=== PATIENT | female | born 1990 | race Two or more races ===

== ENCOUNTER 2018-01-05 16:17 | Observation (INO) | payer MEDICAID ==
[2018-01-05] MEDS ORDERED: CLINDAMYCIN 600MG/50ML PREMIX 600 MG/50 ML BAG IVPB ONE (16:27)
--- NOTE | 2018-01-05 16:27 | Emergency Department Record ---
History of Present Illness - General Chief complaint: Abscess Stated complaint: SORE ON FACE Time Seen by Provider: 01/05/18 16:23 Source: Patient Mode of Arrival: Ambulatory Limitations: No limitations - History of Present Illness Initial comments: 27 yo female presents with a left sided facial infection that started on Thursday near her upper left lip. The area of swelling and redness has increased since that time. She has had MRSA in the past. She is a diabetic. She states her sugars typically are not well controlled. Prior abscesses have occurred in the axilla and legs. She had an abscess drained last fall on the right leg. No nausea or vomiting. No diarrhea. She did have some drainage from the area above the upper lip over the weekend that has stopped. No other active lesions. MD complaint: Abscess/boil -: Days(s) (4) Hx Tetanus Toxoid Vaccination: No Location: Face Severity: Moderate Consistency: Constant Improves with: None Worsens with: None Context: Other (Hx of MRSA skin infections) Associated symptoms: Denies other symptoms Treatments Prior to Arrival: None - Related Data Allergies Allergy/AdvReac Type Severity Reaction Status Date / Time No Known Drug Allergies Allergy Verified 01/05/18 16:25 Review of Systems Constitutional: Denies: Chills, Fever, Malaise, Weakness Eyes: Denies: Eye discharge, Eye pain, Photophobia, Vision change ENT: Denies: Congestion, Throat pain Respiratory: Denies: Cough Cardiovascular: Denies: Chest pain, Syncope Endocrine: Denies: Fatigue Gastrointestinal: Denies: Abdominal pain, Diarrhea, Nausea, Vomiting Genitourinary: Denies: Dysuria, Urgency Musculoskeletal: Denies: Arthralgia, Back pain, Myalgia Skin: Reports: As per HPI, Change in color. Denies: Bruising Neurological: Denies: Confusion, Headache, Numbness, Weakness Psychiatric: Denies: Anxiety Hematological/Lymphatic: Denies: Blood Clots, Easy bleeding, Easy bruising, Swollen glands Past Medical History - SOCIAL HISTORY Smoking Status: Never smoker Drug Use: None - RESPIRATORY Hx Respiratory Disorders: No - CARDIOVASCULAR Hx Cardio Disorders: No - NEURO Hx Neuro Disorders: No - GI Hx GI Disorders: No - Hx Genitourinary Disorders: No - ENDOCRINE Hx Endocrine Disorders: Yes Hx Diabetes: Yes (type II) - MUSCULOSKELETAL Hx Musculoskeletal Disorders: No - PSYCH Hx Psych Problems: No - HEMATOLOGY/ONCOLOGY Hx Hematology/Oncology Disorders: No Family Medical History Family Hx Comment (NOT TO BE USED IN PLACE OF ITEMS BELOW): diabetes Hx Diabetes: Father, Mother, Brother/Sister Physical Exam - General General Appearance: Alert, Oriented x3, Cooperative, No acute distress Limitations: No limitations - Head Head exam: Atraumatic. negative: Normal inspection Image of Face/Head: 1 - scabbed area with most intense erythema 2 - erythema with swelling - Eye Eye exam: Normal appearance, PERRL, EOMI, Periorbital swelling, Periorbital tenderness. negative: Conjunctival injection Pupils: Normal accommodation. negative: Irregular, Unequal - ENT ENT exam: Normal exam, Mucous membranes moist, Normal orophraynx Ear exam: Normal external inspection Nasal Exam: Normal inspection Mouth exam: Normal external inspection Throat exam: Normal inspection - Neck Neck exam: Normal inspection. negative: Lymphadenopathy, Tenderness - Respiratory Respiratory exam: Normal lung sounds bilaterally. negative: Respiratory distress - Cardiovascular Cardiovascular Exam: Regular rate, Normal rhythm, Normal heart sounds - GI/Abdominal GI/Abdominal exam: Soft - Rectal Rectal exam: Deferred - exam: Deferred - Extremities Extremities exam: Normal inspection, Full ROM, Normal capillary refill. negative: Tenderness - Neurological Neurological exam: Alert, Oriented X3 - Psychiatric Psychiatric exam: Normal affect, Normal mood - Skin Skin exam: Erythema Course - Reevaluation(s) Reevaluation #1: The labs were reviewed No acute changes The CRP is elevated at 5.69 The HCO3 is 21 AG is 17 Glucose is 445 I called the radiologist, dr Snow, to discuss the recommendation for CT given the diagnosis of . He recommended CT with contrast and shielding. Risk of the infection to the outweighs risk of exposure. 01/05/18 17:26 01/05/18 18:03 pH is 7.29 01/05/18 18:[address] scan was reviewed The findings are consistent with cellulitis There are no findings of abscess Given the infection, her diabetes and elevated glucose she will be admitted I discussed the case with Dr Romeo of the admission service She will be place on IV antibiotics and treated to optimize her glycemic control. Medical Decision Making - Lab Data Result diagrams: 01/05/18 06:23 01/05/18 22:10 Disposition Disposition: Admit Clinical Impression: Facial cellulitis, Hyperglycemia, Disposition: Still a Patient at [facility] Decision to Admit: Admit from ER Decision to Admit Date: 01/05/18 Decision to Admit Time: 18:31 Condition: (1) Good Time of Disposition: 18:27 Quality - Quality Measures Quality Measures: N/A - Blood Pressure Screening Does Patient Have Any of the Following: No Blood Pressure Classification: Pre-Hypertensive BP Reading Systolic Measurement: 134 Diastolic Measurement: 72 Screening for High Blood Pressure: < Pre-Hypertensive BP, F/U Documented > [ [id number]] Pre-Hypertensive Follow-up Interventions: Referral to alternative/primary care provider.
[2018-01-05] MEDS ORDERED: 0.9 % SODIUM CHLORIDE 1,000 ML BAG IV ONE (16:35)
[2018-01-05 16:42] LABS: URINE APPEARANCE CLEAR; URINE BILIRUBIN NEGATIVE (NEGATIVE); URINE BLOOD MODERATE (NEGATIVE); URINE COLOR YELLOW; URINE LEUKOCYTE ESTERASE NEGATIVE (NEGATIVE); URINE NITRITE NEGATIVE (NEGATIVE); URINE PROTEIN NEGATIVE (NEGATIVE); URINE UROBILINOGEN 0.2 E.U./dL (0.20 - 1.00)
[2018-01-05 16:44] LABS: BASO % 0.3 % (0-6); EOS % 2.2 % (0-6); GRAN % 71.3 % (47-80); HEMATOCRIT 39.9 % (35.0-47.0); HEMOGLOBIN 13.8 gm/dl (11.6-16.0); MEAN CELL VOLUME 80.4 fl (81-97); MEAN CORPUSCULAR HEMOGLOBIN 27.8 pg (27-33); MEAN CORPUSCULAR HGB CONC 34.6 g/dl (32-36); MEAN PLATELET VOLUME 11.4 fl (7.4-10.4); MONO % 7.2 % (0-9); PLATELET COUNT 244 K/uL (130-400); RED BLOOD COUNT 4.96 M/uL (3.80-5.40); URINE GLUCOSE (UA) >=1000 mg/dL (NEGATIVE); URINE KETONE 160 mg/dL (NEGATIVE); WHITE BLOOD COUNT W/O DIFF 10.2 K/uL (4.2-12.2)
[2018-01-05 16:53] LABS: HCG,QUALITATIVE URINE POSITIVE (NEGATIVE); URINE WBC NONE SEEN (0-2/hpf)
[2018-01-05 17:15] LABS: BLOOD UREA NITROGEN 5 mg/dL (6-20); CREATININE 0.5 mg/dL (0.5-0.9); EST GLOMERULAR FILTRATION RATE > 60 mL/min; GLUCOSE,RANDOM 445 mg/dL (74-109)
[2018-01-05 17:45] LABS: ACETONE,SERUM POSITIVE (NEGATIVE)
[2018-01-05] MEDS ORDERED: HUMULIN R 100 UNIT/ML VIAL SQ ONE (17:54)
[2018-01-05] MEDS ORDERED: CLINDAMYCIN 600MG/50ML PREMIX 600 MG/50 ML BAG IVPB SCH ×2 (20:29→22:00)
[2018-01-05] MEDS: ACETAMINOPHEN 325 MG TAB PO PRN (20:43)
[2018-01-05] MEDS: 0.9 % SODIUM CHLORIDE 1000ML 1,000 ML IV PRN (20:52)
[2018-01-05] MEDS: METFORMIN ER HCL 500 MG TAB.ER.24H PO SCH (22:33)
[2018-01-05 22:36] LABS: BLOOD UREA NITROGEN 5 mg/dL (6-20); CREATININE 0.4 mg/dL (0.5-0.9); EST GLOMERULAR FILTRATION RATE > 60 mL/min; GLUCOSE,RANDOM 359 mg/dL (74-109)
[2018-01-05] MEDS: HUMULIN R 100 UNIT/ML VIAL SQ PRN (23:30)
[2018-01-06] MEDS: CLINDAMYCIN 600MG/50ML PREMIX 600 MG/50 ML BAG IVPB SCH ×3 (00:09→16:03)
[2018-01-06] MEDS: ACETAMINOPHEN 325 MG TAB PO PRN ×4 (00:47→22:20)
[2018-01-06] MEDS: HUMULIN R 100 UNIT/ML VIAL SQ PRN ×3 (02:41→12:51)
[2018-01-06] MEDS: 0.9 % SODIUM CHLORIDE 1000ML 1,000 ML IV PRN ×2 (05:58→16:01)
[2018-01-06 07:50] LABS: BLOOD UREA NITROGEN 7 mg/dL (6-20); CREATININE 0.4 mg/dL (0.5-0.9); EST GLOMERULAR FILTRATION RATE > 60 mL/min; GLUCOSE,RANDOM 146 mg/dL (74-109)
--- NOTE | 2018-01-06 08:35 | History & Physical ---
History of Present Illness - Date of Service Date of Service for History & Physical: 01/06/18 - History of Present Illness Admitting Diagnosis: Facial cellulitis, hyperglycemia History of Present Illness: Ms. Fu is 27 y/o female here with a three day history of left facial swelling and and redness. She says that the symptoms began over the weekend with her face swelling initially then she noticed a red blister forming near her left upper lip. She denies any cuts, scrapes or animal bites. She has a history of diabetes mellitus on oral hypoglycemics but does not have a primary care doctor with whom she follows. She is not sure of how well her sugars have been controlled and has not had her blood sugars checked in a while. In the ED no fluid/pus was able to be expressed from the blister and maxillofacial CT showed soft tissue swelling. The patient's urine also showed significant proteins and ketones and her HCG was positive. The patient was started on IV Clindamycin, and insulin for glycemic control. She is admitted for observation and continued IV antibiotics and pain control. Travel Screening - Travel/Exposure Within Last 30 Days Have you traveled within the last 30 days?: No - Travel/Exposure Within Last Year Have you traveled outside the [place] in the last year?: No - Additonal Travel Details Have you been exposed to anyone with a communicable illness?: No - Travel Symptoms Symptom Screening: None Review of Systems Constitutional: Denies: Chills, Fever, Malaise, Weakness Eyes: Denies: Eye discharge, Eye pain, Photophobia, Vision change ENT: Denies: Congestion, Throat pain Respiratory: Denies: Cough Cardiovascular: Denies: Chest pain, Syncope Endocrine: Denies: Fatigue Gastrointestinal: Denies: Abdominal pain, Diarrhea, Nausea, Vomiting Genitourinary: Denies: Dysuria, Urgency Musculoskeletal: Denies: Arthralgia, Back pain, Myalgia Skin: Reports: As per HPI, Change in color. Denies: Bruising Neurological: Denies: Confusion, Headache, Numbness, Weakness Psychiatric: Denies: Anxiety Hematological/Lymphatic: Denies: Blood Clots, Easy bleeding, Easy bruising, Swollen glands Past Medical History - SOCIAL HISTORY Smoking Status: Never smoker Drug Use: None - RESPIRATORY Hx Respiratory Disorders: No - CARDIOVASCULAR Hx Cardio Disorders: No - NEURO Hx Neuro Disorders: No - GI Hx GI Disorders: No - Hx Genitourinary Disorders: No - ENDOCRINE Hx Endocrine Disorders: Yes Hx Diabetes: Yes (type II) - MUSCULOSKELETAL Hx Musculoskeletal Disorders: No - PSYCH Hx Psych Problems: No - HEMATOLOGY/ONCOLOGY Hx Hematology/Oncology Disorders: No Family Medical History Family Hx Comment (NOT TO BE USED IN PLACE OF ITEMS BELOW): diabetes Hx Diabetes: Father, Mother, Brother/Sister H&P Meds/Allergies - Allergies Allergies: Allergies Allergy/AdvReac Type Severity Reaction Status Date / Time No Known Drug Allergies Allergy Verified 01/05/18 16:25 - Active Medications Active Medications: Current Medications Acetaminophen (Tylenol 325mg) 650 mg PO Q6H PRN PRN Reason: PAIN/TEMP Last Admin: 01/06/18 07:02 Dose: 650 mg Sodium Chloride () 1,000 mls @ 125 mls/hr IV .Q8H PRN PRN Reason: LARGE VOLUME IV Last Admin: 01/06/18 05:58 Dose: 125 mls/hr Clindamycin Phosphate (Cleocin 600 [id number]) 600 mg in 50 mls @ 100 mls/ hr IVPB Q8H [facility] Last Infusion: 01/06/18 00:47 Dose: Infused Insulin Human Regular (Humulin R) 1 unit SQ Q4H PRN; Protocol PRN Reason: Hyperglycemica Last Admin: 01/06/18 07:03 Dose: 4 unit Metformin HCl (Glucophage Xr) 500 mg PO DAILY [facility] Last Admin: 01/05/18 22:33 Dose: Not Given Pneumococcal Polyvalent Vaccine (Pneumovax) 25 mcg IM .ONCE ONE Stop: 01/06/18 10:01 Physical Exam - Vital Signs Vital Signs: Vital Signs - Last 24 Hrs Temp Pulse Resp BP Pulse Ox 01/06/18 05:00 97.9 F 106 H 18 128/66 96 01/05/18 20:29 98.6 F 124 H 18 127/70 99 - General General Appearance: Alert, Oriented x3, Cooperative, No acute distress Limitations: No limitations - Head Head exam: Atraumatic, Other (tenderness, erythema and ulceration of the left face ). negative: Normal inspection - Eye Eye exam: Normal appearance, PERRL, EOMI, Periorbital swelling, Periorbital tenderness. negative: Conjunctival injection Pupils: Normal accommodation. negative: Irregular, Unequal - ENT ENT exam: Normal exam, Mucous membranes moist, Normal orophraynx Ear exam: Normal external inspection Nasal Exam: Normal inspection Mouth exam: Normal external inspection Throat exam: Normal inspection - Neck Neck exam: Normal inspection. negative: Lymphadenopathy, Tenderness - Respiratory Respiratory exam: Normal lung sounds bilaterally. negative: Respiratory distress - Cardiovascular Cardiovascular Exam: Regular rate, Normal rhythm, Normal heart sounds Peripheral Pulses: 2+: Radial (R), Radial (L), Dorsalis Pedis (R), Dorsalis Pedis (L) - GI/Abdominal GI/Abdominal exam: Soft - Rectal Rectal exam: Deferred - exam: Deferred - Extremities Extremities exam: Normal inspection, Full ROM, Normal capillary refill. negative: Tenderness - Neurological Neurological exam: Alert, Oriented X3 - Psychiatric Psychiatric exam: Normal affect, Normal mood - Skin Skin exam: Erythema Type of lesion: Abscess (left upper lip/maxillary region ) Results - Labs Result Diagrams: 01/05/18 06:23 01/06/18 06:44 Labs Last 24 Hours: Laboratory Results - last 24 hr 01/05/18 01/05/18 01/06/18 22:10 Unknown 02:30 Sodium 135 L Potassium 3.5 Chloride 99 Carbon Dioxide 23.0 Anion Gap 13.0 BUN 5 L Creatinine 0.4 L Estimated GFR > 60 POC Glucose Cancelled 226 H Random Glucose 359 H Calcium 8.2 L 01/06/18 01/06/18 06:44 07:07 Sodium 139 Potassium 3.3 L Chloride 101 Carbon Dioxide 25.0 Anion Gap 13.0 BUN 7 Creatinine 0.4 L Estimated GFR > 60 POC Glucose 144 H Random Glucose 146 H Calcium 8.2 L VTE H&P Assessment - Risk for VTE Risk for VTE: No Risk Level: Very Low Risk Assessment Date: 01/06/18 Risk Assessment Time: 08:59 VTE Orders Placed or Will Be Placed: No VTE Reason for No Prophylaxis: Not Indicated (patient ambulatory and has low risk of DVT/PE ) Plan - Inpatient Certification Inpatient Certification: Admit to inpatient care: Based on my medical assessment, after consideration of patient's risk factors (age, co-morbidities and patient presenting symptoms and acuity), I expect that this patient will remain in the hospital greater than or equal to two midnights and that the services needed warrant inpatient care because: Patient Risk Factors: facial cellulitis Estimated length of stay: [] The patient may reasonably be expected to be discharged or transferred to a hospital within 96 hours after admission to [facility]. I certify that my determination is in accordance with my understanding of Medicare requirements for reasonable and necessary inpatient services. - Detailed Diagnosis and Plan (1) Facial cellulitis Current Visit: Yes Status: Acute Base Code: L03.211 - CELLULITIS OF FACE Comment: - cellulitis of the left face/maxillary area. WBCs 10K, Maxillofacial CT showing only tissue swelling. Monitor for change in affected area over the next 24 hours. - continue IV Clindamycin 600mg Q8H, change to po abx, pain control with Tylenol 650mg Q6H PRN. - repeat CBC w/ diff in the morning. (2) Diabetes mellitus type II, uncontrolled Current Visit: Yes Status: Acute Base Code: E11.65 - TYPE 2 DIABETES MELLITUS WITH HYPERGLYCEMIA Comment: - poor glycemic control on Metformin 500mg BID at home. - recieved 10 units regular insulin and sliding scale with improvement. - d/c sliding scale and start Levemir 5 units QHS, continue metformin 500mg BID - hba1c and BMP on mornning labs. (3) Current Visit: Yes Status: Acute Base Code: Z34.90 - ENCNTR FOR SUPRVSN OF NORMAL , UNSP, UNSP TRIMESTER Comment: - HCG elevated, positive . Age of undetermined. - pt to follow up with It Analyst next Thursday. - tight glycemic control; on Metformin 500mg and basal insulin 5 units QHS. (4) Hypokalemia Current Visit: Yes Status: Acute Base Code: E87.6 - HYPOKALEMIA Comment: - potassium 3.3 - repeletion with 40 meq once. (5) Full code status Current Visit: Yes Status: Acute Base Code: Z78.9 - OTHER SPECIFIED HEALTH STATUS Comment: FULL CODE - Disposition Likely d/c tomorrow if improvement today
[2018-01-06] MEDS ORDERED: POTASSIUM CHLORIDE 20 MEQ TABLET PO ONE (08:36)
--- NOTE | 2018-01-06 09:09 | CT SCAN REPORT ---
EXAM: CT OF THE FACIAL BONES HISTORY: FACIAL CELLULITIS. TECHNIQUE: After the administration of intravenous contrast, 80 ml Omnipaque 300, axial images are obtained from the angle of the mandible to the skull base. FINDINGS: There is evidence of an inflammatory process in the left side of the face involving the maxilla and left cheek. There is evidence of reactive adenopathy in the left submandibular region. There is no evidence of apical tooth abscess or erosion of the maxilla or mandible. There is no evidence of subcutaneous fluid collection or subcutaneous emphysema. The parotid glands are symmetric. The submandibular glands are unremarkable. There is no convincing evidence of sialolith. IMPRESSION: LEFT FACIAL CELLULITIS WITHOUT ABSCESS. THERE ARE NONOBSTRUCTIVE RETENTION CYSTS IN THE FLOOR OF EACH MAXILLARY SINUS. JOB NUMBER: [id number] MTDD
[2018-01-06] MEDS ORDERED: PNEUM 23-VAL ADULT IM ONE (10:00)
[2018-01-06] MEDS ORDERED: FLU VAC QS 2017-18 (INPT, 6MO+) 60MCG/0.5ML IM ONE (10:00)
[2018-01-06] MEDS: METFORMIN ER HCL 500 MG TAB.ER.24H PO SCH (10:53)
[2018-01-06] MEDS ORDERED: LEVEMIR FLEXTOUCH 100 UNIT/ML INSULIN PEN SQ SCH (22:00)
[2018-01-07] MEDS: CLINDAMYCIN 600MG/50ML PREMIX 600 MG/50 ML BAG IVPB SCH ×2 (00:17→08:24)
[2018-01-07] MEDS ORDERED: LEVEMIR FLEXTOUCH 100 UNIT/ML INSULIN PEN SQ ONE (01:29)
[2018-01-07] MEDS: 0.9 % SODIUM CHLORIDE 1000ML 1,000 ML IV PRN ×2 (02:47→21:10)
[2018-01-07 06:37] LABS: BASO % 0.1 % (0-6); EOS % 3.2 % (0-6); GRAN % 70.5 % (47-80); HEMATOCRIT 33.9 % (35.0-47.0); HEMOGLOBIN 11.4 gm/dl (11.6-16.0); LYMPH % 16.9 % (16-45); MEAN CELL VOLUME 81.7 fl (81-97); MEAN CORPUSCULAR HGB CONC 33.6 g/dl (32-36); MEAN PLATELET VOLUME 10.9 fl (7.4-10.4); MONO % 9.3 % (0-9); PLATELET COUNT 174 K/uL (130-400); RED BLOOD COUNT 4.15 M/uL (3.80-5.40); RED CELL DISTRIBUTION WIDTH 12.9 % (11.5-14.5); WHITE BLOOD COUNT W/O DIFF 7.1 K/uL (4.2-12.2)
[2018-01-07 06:40] LABS: MEAN CORPUSCULAR HEMOGLOBIN 27.4 pg (27-33)
[2018-01-07 06:52] LABS: BLOOD UREA NITROGEN 7 mg/dL (6-20); CREATININE 0.3 mg/dL (0.5-0.9); EST GLOMERULAR FILTRATION RATE > 60 mL/min; GLUCOSE,RANDOM 284 mg/dL (74-109)
--- NOTE | 2018-01-07 09:37 | Physician Progress Note ---
Subjective - Date Date of Physician Progress Note: 01/07/18 - Subjective Subjective Comment: The patient is awake, alert and oriented. She says that the swelling has gone down a bit and that it did have some discharge from it overnight. She still has mild pain but is otherwise has much improved. Objective - Vital Signs Vital Signs: Vital Signs - Last 24 Hrs Temp Pulse Resp BP Pulse Ox 01/06/18 22:00 98.4 F 101 H 18 119/68 98 01/06/18 21:00 18 01/06/18 10:25 97.4 F L 110 H 16 113/66 96 - General General Appearance: Alert, Oriented x3, Cooperative, No acute distress Limitations: No limitations - Head Head exam: Atraumatic, Other (tenderness, erythema and ulceration of the left face ). negative: Normal inspection - Eye Eye exam: Normal appearance, PERRL, EOMI, Periorbital swelling, Periorbital tenderness. negative: Conjunctival injection Pupils: Normal accommodation. negative: Irregular, Unequal - ENT ENT exam: Normal exam, Mucous membranes moist, Normal orophraynx Ear exam: Normal external inspection Nasal Exam: Normal inspection Mouth exam: Normal external inspection Throat exam: Normal inspection - Neck Neck exam: Normal inspection. negative: Lymphadenopathy, Tenderness - Respiratory Respiratory exam: Normal lung sounds bilaterally. negative: Respiratory distress - Cardiovascular Cardiovascular Exam: Regular rate, Normal rhythm, Normal heart sounds Peripheral Pulses: 2+: Radial (R), Radial (L), Dorsalis Pedis (R), Dorsalis Pedis (L) - GI/Abdominal GI/Abdominal exam: Soft - Rectal Rectal exam: Deferred - exam: Deferred - Extremities Extremities exam: Normal inspection, Full ROM, Normal capillary refill. negative: Tenderness - Neurological Neurological exam: Alert, Oriented X3 - Psychiatric Psychiatric exam: Normal affect, Normal mood - Skin Skin exam: Erythema Type of lesion: Abscess (left upper lip/maxillary region ) Assessment and Plan - Assessment and Plan (1) Facial cellulitis Current Visit: Yes Status: Acute Base Code: L03.211 - CELLULITIS OF FACE Comment: - cellulitis of the left face/maxillary area. WBCs 10 -->7.1, Maxillofacial CT showing only tissue swelling. - change IV Clindamycin 600mg Q8H, oral, cont pain control with Tylenol 650mg Q6H PRN. (2) Diabetes mellitus type II, uncontrolled Current Visit: Yes Status: Acute Base Code: E11.65 - TYPE 2 DIABETES MELLITUS WITH HYPERGLYCEMIA Comment: - poor glycemic control on Metformin 500mg BID at home. Hba1c 14.2 - Levemir 20 units QHS, increase metformin to 1000mg BID, no sliding scale - CBG AcHS, c-peptide ordered (3) Current Visit: Yes Status: Acute Base Code: Z34.90 - ENCNTR FOR SUPRVSN OF NORMAL , UNSP, UNSP TRIMESTER Comment: - HCG elevated, positive . Age of undetermined. - pt to follow up with Marshmallow Machine Operator next Thursday. - tight glycemic control; on Metformin 500mg and basal insulin 5 units QHS. (4) Full code status Current Visit: Yes Status: Acute Base Code: Z78.9 - OTHER SPECIFIED HEALTH STATUS Comment: FULL CODE - Disposition Disposition: Will keep for better glycemic control and antibiotics. Results - Labs Result Diagrams: 01/07/18 06:24 01/07/18 06:24 Labs Last 24 Hours: Laboratory Results - last 24 hr 01/05/18 01/06/18 01/06/18 22:00 11:15 21:47 WBC RBC Hgb Hct MCV MCH MCHC RDW Plt Count MPV Gran % Lymphocytes % Monocytes % Eosinophils % Basophils % Sodium Potassium Chloride Carbon Dioxide Anion Gap BUN Creatinine Estimated GFR POC Glucose Cancelled 323 H 418 H Random Glucose Hemoglobin A1c Calcium 01/07/18 01/07/18 01/07/18 00:59 06:24 06:24 WBC RBC Hgb Hct MCV MCH MCHC RDW Plt Count MPV Gran % Lymphocytes % Monocytes % Eosinophils % Basophils % Sodium 138 Potassium 3.7 Chloride 100 Carbon Dioxide 26.0 Anion Gap 12.0 BUN 7 Creatinine 0.3 L Estimated GFR > 60 POC Glucose 429 H Random Glucose 284 H Hemoglobin A1c 14.30 H Calcium 8.3 L 01/07/18 01/07/18 06:24 08:09 WBC 7.1 RBC 4.15 Hgb 11.4 L Hct 33.9 L MCV 81.7 MCH 27.4 MCHC 33.6 RDW 12.9 Plt Count 174 MPV 10.9 H Gran % 70.5 Lymphocytes % 16.9 Monocytes % 9.3 H Eosinophils % 3.2 Basophils % 0.1 Sodium Potassium Chloride Carbon Dioxide Anion Gap BUN Creatinine Estimated GFR POC Glucose 305 H Random Glucose Hemoglobin A1c Calcium DVT/PE Assessment - Risk for VTE Risk for VTE: No Risk Level: Very Low Risk Assessment Date: 01/06/18 Risk Assessment Time: 08:59 VTE Orders Placed or Will Be Placed: No VTE Reason for No Prophylaxis: Not Indicated (patient ambulatory and has low risk of DVT/PE ) - Active Medicaitons Current Medications: Current Medications Acetaminophen (Tylenol 325mg) 650 mg PO Q6H PRN PRN Reason: PAIN/TEMP Last Admin: 01/06/18 22:20 Dose: 650 mg Sodium Chloride () 1,000 mls @ 125 mls/hr IV .Q8H PRN PRN Reason: LARGE VOLUME IV Last Admin: 01/07/18 02:47 Dose: 125 mls/hr Clindamycin Phosphate (Cleocin 600 [id number]) 600 mg in 50 mls @ 100 mls/ hr IVPB Q8H [facility] Last Admin: 01/07/18 08:24 Dose: 100 mls/hr Insulin Detemir (Levemir Flextouch) 20 unit SQ QHS [facility] Metformin HCl (Glucophage Xr) 500 mg PO DAILY [facility] Last Admin: 01/06/18 10:53 Dose: 500 mg AMI Plan - Labs Result Diagrams: 01/07/18 06:24 01/07/18 06:24
[2018-01-07] MEDS: METFORMIN ER HCL 500 MG TAB.ER.24H PO SCH ×2 (12:10→21:09)
[2018-01-07] MEDS: CLINDAMYCIN 150 MG CAP PO SCH ×2 (13:37→17:57)
[2018-01-07] MEDS: ACETAMINOPHEN 325 MG TAB PO PRN (21:09)
[2018-01-07] MEDS ORDERED: LEVEMIR FLEXTOUCH 100 UNIT/ML INSULIN PEN SQ SCH (22:00)
[2018-01-08] MEDS: CLINDAMYCIN 150 MG CAP PO SCH ×2 (01:47→06:13)
[2018-01-08] MEDS: ACETAMINOPHEN 325 MG TAB PO PRN (06:15)
[2018-01-08 06:40] LABS: BLOOD UREA NITROGEN 8 mg/dL (6-20); CREATININE 0.4 mg/dL (0.5-0.9); EST GLOMERULAR FILTRATION RATE > 60 mL/min; GLUCOSE,RANDOM 290 mg/dL (74-109)
[2018-01-08] MEDS: METFORMIN ER HCL 500 MG TAB.ER.24H PO SCH (09:11)
--- NOTE | 2018-01-08 09:25 | Discharge Summary ---
Providers Discharge Summary Date: 01/08/18 Date of admission: 01/05/18 20:22 Attending physician: EVANS CHEN Physical Exam - Vital Signs Vital Signs: Vital Signs - Last 24 Hrs Temp Pulse Resp BP Pulse Ox 01/08/18 05:00 98.6 F 89 16 119/63 99 01/07/18 21:00 98.5 F 89 18 102/55 99 01/07/18 18:00 97 F L 93 H 18 114/63 97 01/07/18 09:49 97.2 F L 96 H 18 107/65 97 - General General Appearance: Alert, Oriented x3, Cooperative, No acute distress Limitations: No limitations - Head Head exam: Atraumatic, Other (tenderness, erythema and ulceration of the left face ). negative: Normal inspection - Eye Eye exam: Normal appearance, PERRL, EOMI, Periorbital swelling, Periorbital tenderness. negative: Conjunctival injection Pupils: Normal accommodation. negative: Irregular, Unequal - ENT ENT exam: Normal exam, Mucous membranes moist, Normal orophraynx Ear exam: Normal external inspection Nasal Exam: Normal inspection Mouth exam: Normal external inspection Throat exam: Normal inspection - Neck Neck exam: Normal inspection. negative: Lymphadenopathy, Tenderness - Respiratory Respiratory exam: Normal lung sounds bilaterally. negative: Respiratory distress - Cardiovascular Cardiovascular Exam: Regular rate, Normal rhythm, Normal heart sounds Peripheral Pulses: 2+: Radial (R), Radial (L), Dorsalis Pedis (R), Dorsalis Pedis (L) - GI/Abdominal GI/Abdominal exam: Soft - Rectal Rectal exam: Deferred - exam: Deferred - Extremities Extremities exam: Normal inspection, Full ROM, Normal capillary refill. negative: Tenderness - Neurological Neurological exam: Alert, Oriented X3 - Psychiatric Psychiatric exam: Normal affect, Normal mood - Skin Skin exam: Erythema Type of lesion: Abscess (marked improvement of facial abscess. ) Hospitalization - Hospitalization Admission Diagnosis: Facial cellulitis, hyperglycemia - Problem List/Discharge Diagnosis (1) Facial cellulitis Current Visit: Yes Status: Acute Base Code: L03.211 - CELLULITIS OF FACE Comment: - cellulitis of the left face/maxillary area. WBCs 10 -->7.1 (01/07), Maxillofacial CT showing only tissue swelling. - Clindamycin 300mg Q8H, cont pain control with Tylenol 650mg Q6H PRN. (2) Diabetes mellitus type II, uncontrolled Current Visit: Yes Status: Acute Base Code: E11.65 - TYPE 2 DIABETES MELLITUS WITH HYPERGLYCEMIA Comment: - poor glycemic control on Metformin 500mg BID at home. Hba1c 14.2, CBG 290 - Levemir 20 units QHS, Novolog 5 units TIDAC, increase metformin to 1000mg BID , no sliding scale - CBG AcHS, c-peptide pending (3) Current Visit: Yes Status: Acute Discharge Diagnosis: Weeks of gestation: unspecified Qualified Code(s): Z34.90 - Encounter for supervision of normal , unspecified, unspecified trimester Base Code: Z34.90 - ENCNTR FOR SUPRVSN OF NORMAL , UNSP, UNSP TRIMESTER Comment: - HCG elevated, positive . Age of undetermined. - pt to follow up with [facility] next week and PCP on Thursday. - tight glycemic control; on Metformin 500mg and basal insulin 5 units QHS. (4) Full code status Current Visit: Yes Status: Acute Base Code: Z78.9 - OTHER SPECIFIED HEALTH STATUS Comment: FULL CODE - Disposition Will keep for better glycemic control and antibiotics. - Hospitalization Course Hospital Course: Ms. Fu is 27 y/o female here with a three day history of left facial swelling and and redness. She says that the symptoms began over the weekend with her face swelling initially then she noticed a red blister forming near her left upper lip. She denies any cuts, scrapes or animal bites. She has a history of diabetes mellitus on oral hypoglycemics but does not have a primary care doctor with whom she follows. She is not sure of how well her sugars have been controlled and has not had her blood sugars checked in a while. In the ED no fluid/pus was able to be expressed from the blister and maxillofacial CT showed soft tissue swelling. The patient's urine also showed significant proteins and ketones and her HCG was positive. The patient was started on IV Clindamycin, and insulin for glycemic control. She is admitted for observation and continued IV antibiotics and pain control. 01/07: The patient felt much better and swelling of the abscess went down quite a bit. Her serum glucose was still not very well controlled and went in the 400s. She was started on Levemir 20 units QHS and increased dose of Metformin. 01/08: There is further improvement in the patient's facial cellulitis. Serum glucose is 290 and Novolog 5 units TIDAC will be initiated. Abnormal Labs: Abnormal Lab Results 01/05/18 01/06/18 01/06/18 Range/Units 22:10 02:30 06:44 Hgb (11.6-16.0) gm/dl Hct (35.0-47.0) % MPV (7.4-10.4) fl Monocytes % (0-9) % Sodium 135 L (136-145) mmol/L Potassium 3.3 L (3.4-4.5) mmol/L Chloride (98-107) mmol/L BUN 5 L (6-20) mg/dL Creatinine 0.4 L 0.4 L (0.5-0.9) mg/dL POC Glucose 226 H (70-110) mg/dL Random Glucose 359 H 146 H (74-109) mg/dL Hemoglobin A1c (4.0-6.00) % Calcium 8.2 L 8.2 L (8.6-10.0) mg/dL 01/06/18 01/06/18 01/06/18 Range/Units 07:07 11:15 21:47 Hgb (11.6-16.0) gm/dl Hct (35.0-47.0) % MPV (7.4-10.4) fl Monocytes % (0-9) % Sodium (136-145) mmol/L Potassium (3.4-4.5) mmol/L Chloride (98-107) mmol/L BUN (6-20) mg/dL Creatinine (0.5-0.9) mg/dL POC Glucose 144 H 323 H 418 H (70-110) mg/dL Random Glucose (74-109) mg/dL Hemoglobin A1c (4.0-6.00) % Calcium (8.6-10.0) mg/dL 01/07/18 01/07/18 01/07/18 Range/Units 00:59 06:24 06:24 Hgb (11.6-16.0) gm/dl Hct (35.0-47.0) % MPV (7.4-10.4) fl Monocytes % (0-9) % Sodium (136-145) mmol/L Potassium (3.4-4.5) mmol/L Chloride (98-107) mmol/L BUN (6-20) mg/dL Creatinine 0.3 L (0.5-0.9) mg/dL POC Glucose 429 H (70-110) mg/dL Random Glucose 284 H (74-109) mg/dL Hemoglobin A1c 14.30 H (4.0-6.00) % Calcium 8.3 L (8.6-10.0) mg/dL 01/07/18 01/07/18 01/07/18 Range/Units 06:24 08:09 17:55 Hgb 11.4 L (11.6-16.0) gm/dl Hct 33.9 L (35.0-47.0) % MPV 10.9 H (7.4-10.4) fl Monocytes % 9.3 H (0-9) % Sodium (136-145) mmol/L Potassium (3.4-4.5) mmol/L Chloride (98-107) mmol/L BUN (6-20) mg/dL Creatinine (0.5-0.9) mg/dL POC Glucose 305 H 327 H (70-110) mg/dL Random Glucose (74-109) mg/dL Hemoglobin A1c (4.0-6.00) % Calcium (8.6-10.0) mg/dL 01/07/18 01/08/18 Range/Units 22:00 06:11 Hgb (11.6-16.0) gm/dl Hct (35.0-47.0) % MPV (7.4-10.4) fl Monocytes % (0-9) % Sodium 133 L (136-145) mmol/L Potassium (3.4-4.5) mmol/L Chloride 96 L (98-107) mmol/L BUN (6-20) mg/dL Creatinine 0.4 L (0.5-0.9) mg/dL POC Glucose 289 H (70-110) mg/dL Random Glucose 290 H (74-109) mg/dL Hemoglobin A1c (4.0-6.00) % Calcium (8.6-10.0) mg/dL Condition at Discharge: (1) Good Discharge Diagnosis: Facial abscess/cellulitis, hyperglycemia Discharge Medications - Discharge Medications Prescriptions: Insulin Detemir [Levemir Flextouch] 20 unit SQ QHS #1 syringe Clindamycin HCl [Cleocin HCl] 300 mg PO Q8HR #15 capsule Insulin Aspart [Novolog Flexpen] 5 unit SQ TIDINS #3 ml Metformin ER HCl [Glucophage Xr] 1,000 mg PO BID #120 tab Home Medications: Ambulatory Orders Acetaminophen [Tylenol 325Mg] 650 mg PO Q6H PRN tablet 01/08/18 [Last Taken Unknown] Clindamycin HCl [Cleocin HCl] 300 mg PO Q8HR #15 capsule 01/08/18 [Last Taken Unknown] Insulin Aspart [Novolog Flexpen] 5 unit SQ TIDINS #3 ml 01/08/18 [Last Taken Unknown] Insulin Detemir [Levemir Flextouch] 20 unit SQ QHS #1 syringe 01/08/18 [Last Taken Unknown] Metformin ER HCl [Glucophage Xr] 1,000 mg PO BID #120 tab 01/08/18 [Last Taken Unknown] Discharge Plan - Discharge Instructions Activity at Discharge: Return To Work Once Cleared By Your PCP/Specialist Diet at Discharge: Diabetic Diet Additional Instructions: Follow up with PCP in [place] on Saturday January 13, 2018 Continue medications: Metformin 1000mg twice daily, Start Levemir 20 units at night and Novolog 5 units with meals three times daily. Antibiotic therapy: Clindamycin 300mg three times daily for the next 5 days. Continue cold compresses and avoid picking and irritating the area with topical creams or washes. Quality Measures - Quality Measures Quality Measures: Documentation of Current Medications in Medical Record, Screening for High Blood Pressure and F/U Documented - Current Medications Quality Measure: Measure #130: Documentation of Current Medications Documentation of Current Medications: <Current Medications Documented/Reviewed> [[id number]] - Blood Pressure Screening Quality Measure: Screening for High Blood Pressure and Follow-Up Documented Does Patient Have Any of the Following: No Blood Pressure Classification: Pre-Hypertensive BP Reading Systolic Measurement: 134 Diastolic Measurement: 72 Screening for High Blood Pressure: < Pre-Hypertensive BP, F/U Documented > [ [id number]] Pre-Hypertensive Follow-up Interventions: Lifestyle modifications., Referral to alternative/primary care provider. Lifestyle Modification: Weight Reduction, Dietary Approaches to Stop Hypertension (DASH) Eating Plan - Elder Abuse Suspicion Index EASI Reference Information: Jens JIMENEZ, Kvng C, Kirsten D, Leonie Clemente.Development and validation of a tool to assist physicians identification of elder abuse: The Elder Abuse Suspicion Index (EASI ). Journal of Elder Abuse and Neglect, 2008; 20 (3): 276-300.
[2018-01-08] MEDS ORDERED: HUMULIN R 100 UNIT/ML VIAL SC ONE ×4 (11:21)
[2018-01-08] MEDS ORDERED: NOVOLOG FLEXPEN (INSULIN ASPART) 100 UNITS/ML SQ SCH (11:45)
== END 2018-01-08 11:22 | disposition home or self-care (01) ==
LOC: ER 16:17 → MEDSURG 20:21 → UNDOADMIN 20:21 → MEDSURG 20:22 → INTOOBSV 20:22
PROVIDERS: ADMIT Internal Medicine; ATTEND Internal Medicine
DX: L03.211 Cellulitis of face (principal); E11.65 Type 2 diabetes mellitus with hyperglycemia; Z79.4 Long term (current) use of insulin; E87.6 Hypokalemia; Z34.90 Encounter for supervision of normal pregnancy, unspecified, unspecified trimester
CPT/HCPCS: 99285 ×2; 96372; 96365; 96366; 82800; 85025 ×2; 84702; 86140; 84681; 80048 ×4; 36416 ×3; 81001; 82009; 83036; 82948 ×3; 81025; 70487; 90686; G0378 ×4; Q9967; J1815 ×3; 99217; 99220; 99226; 99233; 99239; J7030